=== PATIENT | male | born 1960 | race Caucasian/White ===

== ENCOUNTER → 2020-11-16 | Day surgery (SDC) | payer MEDICARE, OTHER ==
[2020-11-15 10:35] LABS: BASOPHILS % 0.3 % (0.0-1.0); EOSINOPHILS # (AUTO) 0.2 (0.0-0.4); EOSINOPHILS % 2.2 % (0.0-6.0); HEMATOCRIT 47.1 % (38.2-49.6); HEMOGLOBIN 14.2 g/dL (14.0-18.0); LYMPHOCYTES # (AUTO) 2.1 (1.0-3.2); LYMPHOCYTES % 20.9 % (18.0-39.1); MEAN CORPUSCULAR HEMOGLOBIN 25.7 pg (28-32); MEAN CORPUSCULAR HGB CONC 30.1 g/dL (31-35); MEAN CORPUSCULAR VOLUME 85.2 fL (81-99); MONOCYTES # (AUTO) 1.1 (0.2-0.8); MONOCYTES % 10.8 % (4.4-11.3); NEUTROPHILS # (AUTO) 6.5 (2.1-6.9); NEUTROPHILS % 65.5 % (38.7-80.0); PLATELET COUNT 341 x10e3/uL (140-360); RED BLOOD COUNT 5.53 x10e6/uL (4.3-5.7); RED CELL DISTRIBUTION WIDTH 13.7 % (11.7-14.4)
[~2020-11-16] MED LIST: ALBUTEROL0.63 MG/3 NEB; ARIMIDEX1 MG PO; BUSPIRONE HCL10 MG PO; FENTANYL CITRATE/PF 100MCG/2 ML INJ ONE; HYOSCYAMINE SULFATE 0.5 MG/ML INJ ONE; IBUPROFEN800 MG PO; KETAMINE HCL INJ 50 MG/ML 10 ML VIAL ONE; MIDAZOLAM HCL 5 MG/ML VIAL ONE; OMEPRAZOLE40 MG PO; PROPOFOL IV EMULSION 10 MG/ML 20 ML VIAL ONE; SERTRALINE HCL100 MG PO; SUBOXONE 4 MG-1 EACH PO
[2020-11-16 14:04] VITALS: BP 124/100
== END | disposition home or self-care (01) ==
LOC: OR 09:55
PROVIDERS: ATTEND Internal Medicine Gastroenterology
DX: R19.5 Other fecal abnormalities (principal); K63.5 Polyp of colon; K58.9 Irritable bowel syndrome, unspecified; K57.30 Diverticulosis of large intestine without perforation or abscess without bleeding; K59.09 Other constipation; K64.8 Other hemorrhoids; K29.70 Gastritis, unspecified, without bleeding; J44.9 Chronic obstructive pulmonary disease, unspecified; I10 Essential (primary) hypertension; M54.5 Low back pain; F17.210 Nicotine dependence, cigarettes, uncomplicated; Z01.810 Encounter for preprocedural cardiovascular examination; Z01.812 Encounter for preprocedural laboratory examination; Z68.41 Body mass index [BMI] 40.0-44.9, adult
CPT/HCPCS: 36415; 45385; 85025; 93005; J1980; J2250; J2704; J3010; 45378